=== PATIENT | male | born 1935 | race Caucasian/White ===

== ENCOUNTER 2022-04-01 12:47 | Emergency (ER) | payer MEDICARE ==
[~2022-04-01 12:47] MED LIST: Iopamidol-370 76% 500 ML 1 ML ONE
[2022-04-01 14:34] LABS: #Basophils 0.1 thou/uL (0.0-0.2); #Eosinphils 0.4 thou/uL (0.0-0.7); #Lymphocytes 1.3 thou/uL (1.20-3.40); #Monocytes 0.7 thou/uL (0.11-0.59); %Basophils 0.9 % (0.0-1.0); %Eosinophils 4.9 % (0.0-10.0); %Lymphocytes 17.4 % (21.0-51.0); %Monocytes 9.1 % (0.0-10.0); %Neutrophils 67.7 % (42.0-75.0); Mean Corpuscular HGB CONC 34.3 g/dL (32.0-36.0); Mean Corpuscular Hemoglobin 33.4 pg (27.0-31.0); Mean Corpuscular Volume 97.3 fL (78.0-98.0); Mean Platelet Volume 7.6 fL (7.4-10.4); Platelet Count 171 thou/uL (130-400); RBC Distribution Width 12.6 % (11.5-14.5); White Blood Cell (WBC) Count 7.3 thou/uL (4.8-10.8)
[2022-04-01 15:02] LABS: ALT (SGPT) 20 U/L (8-55); AST (SGOT) 30 U/L (5-34); Albumin 4.5 g/dL (3.4-4.8); Alkaline Phosphatase 63 U/L (40-110); Anion Gap 14 mmol/L (10-20); BUN (Urea Nitrogen) 30 mg/dL (8.4-25.7); Bilirubin, Total 1.2 mg/dL (0.2-1.2); Calc. Creatinine Clearance 0 mL/min (70-130); Calcium 9.7 mg/dL (7.8-10.44); Carbon Dioxide 25 mmol/L (23-31); Chloride 104 mmol/L (98-107); Estimated GFR 43; Globulin 3.2 g/dL (2.4-3.5); Glucose 131 mg/dL (83-110); Lipase 30 U/L (8-78); Potassium 4.3 mmol/L (3.5-5.1); Protein, Total 7.7 g/dL (5.8-8.1); Sodium 139 mmol/L (136-145)
[2022-04-01] MEDS ORDERED: Lidocaine Viscous Sol 2% 15 ml UD Cup ONE ×2 (17:22→17:24)
[2022-04-01] MEDS ORDERED: Mag-Al 1200 mg/1200 mg/30 ML UDCUP ONE ×2 (17:22→17:24)
== END 2022-04-01 18:18 | disposition home or self-care (01) ==
LOC: ERS 12:47
DX: K21.9 Gastro-esophageal reflux disease without esophagitis (principal); K86.89 Other specified diseases of pancreas; I25.10 Atherosclerotic heart disease of native coronary artery without angina pectoris; Z79.82 Long term (current) use of aspirin; Z79.899 Other long term (current) drug therapy
CPT/HCPCS: 36415; 74177; 80053; 83690; 84484; 85025; 93005; Q9967

== ENCOUNTER 2022-05-17 09:15 | Outpatient (CLI) | payer MEDICARE | END 2022-05-17 09:16 | disposition home or self-care (01) | LOC: SCSMRI 09:15 | PROVIDERS: ATTEND Internal Medicine Gastroenterology | DX: K86.2 Cyst of pancreas (principal); K21.9 Gastro-esophageal reflux disease without esophagitis; N28.1 Cyst of kidney, acquired | CPT/HCPCS: 74183; 82565 ==